=== PATIENT | female | born 1950 | race Caucasian/White ===

== ENCOUNTER 2017-01-11 05:39 | Day surgery (SDC) | payer OTHER ==
[~2017-01-11] VITALS: Ht 152.4 cm; Wt 69.9 kg
--- NOTE | ~2017-01-11 | O ---
[facility] Biju Hernandez [facility] [place] [address] OPERATIVE REPORT Name: TATE RUBY Room #: REG [facility].#: [id number] Admission: 01/11/17 Attend Phys: Tin Guy MD, Discharge: Date of : 50 Report #: [id number] THIS REPORT FOR: //name// CC: Tin Monroy DATE OF SERVICE: 01/11/2017 PREOPERATIVE DIAGNOSES: 1. Nonhealing stage 4 sacral decubitus wound. 2. 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 3. Protein-calorie malnutrition. 4. Generalized debility. POSTOPERATIVE DIAGNOSES: 1. Nonhealing stage 4 sacral decubitus wound. 2. 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 3. Protein-calorie malnutrition. 4. Generalized debility. PROCEDURES: 1. Excisional debridement of skin, subcutaneous tissue, muscle and bone of a chronically infected stage 4 sacral decubitus wound, ultimately measuring 11 x 11 cm in dimension (121 square cm). Preoperative wound measurements were 2 x 2.5 cm in dimension with significant undermining circumferentially. 2. Placement of an extracellular tissue matrix to the stage 4 sacral decubitus wound measuring 121 square cm. 3. Diverting loop transverse colostomy. SURGEON: Tin Guy M.D. SERVOMECHANISM DESIGNER: Ulises Arauz D.O. ANESTHESIA: General endotracheal anesthesia. ESTIMATED BLOOD LOSS: Minimal (less than 20 mL). COMPLICATIONS: None appreciated. SPECIMENS: All excised tissue from the sacral wound to pathology; however, bone excised was sent to microbiology for aerobic, anaerobic and fungal culture and sensitivity. INDICATIONS: The patient is a 66-year-old chronically debilitated female who has developed a recurrent stage 4 sacral decubitus wound that is chronically infected as it is near her anal orifice and she has chronic debility [address] [address] OPERATIVE REPORT Name: TORINANAMPerlaTATE Room #: REG [facility]#: [id number] Admission: 01/11/17 Attend Phys: Tin Guy MD, Discharge: Date of : 50 Report #: [id number] with stooling in her bed. The patient has undergone prior repair in the distant past, and as this is located near her anal orifice with significant undermining circumferentially, indication was for debridement today back to healthy tissue as well as placement of an extracellular tissue matrix to the wound to stimulate wound healing and performance of a diverting colostomy. DESCRIPTION OF PROCEDURE: After explaining the risks, benefits and alternatives of the procedure with the patient in detail with the patient in the preoperative holding area and obtaining consent, the patient was brought to the operating room supine on her hospital bed. After conducting a thorough timeout procedure verifying correct patient and procedure, the patient was given general endotracheal anesthesia. Once adequate anesthesia was attained, her SCDs were hooked up to a pneumatic compression device, and she was given a preoperative dose of antibiotics in line with the SCIP protocol. She was already on an inpatient regimen as delineated by Infectious Disease. The patient was now positioned on the operating room table in the prone position with all pressure points appropriately padded. The sacral wound was now prepped and draped in a standard surgical sterile fashion. Electrocautery was used to circumferentially debride all nonviable skin, subcutaneous tissue and muscle from the periphery of the wound carrying it down into the bed of the wound where a healthy vascularized tissue was encountered upon. All necrotic tissue and slough in the bed of the wound was excised. In the centralized portion of the wound, there was exposed sacral bone. This was debrided back with electrocautery and rongeurs back to healthy bleeding bone. The bone was sent off the field as specimen for culture and all remaining tissue was sent for pathologic diagnosis. I now utilized the [employer] ultrasonic debridement tool to remove all biofilm and remaining nonviable tissue throughout the bed of the wound. The wound ultimately measured 11 x 11 cm in dimension at the completion of the debridement. Once hemostasis was assured, the wound was irrigated. I then placed an extracellular tissue matrix to the wound measuring 121 square cm. This was sewn down at 1-cm increments around the periphery as well as numerous sutures having been placed throughout the innermost portion of the fenestrated extracellular tissue matrix, all using 3-0 Vicryl in a standard interrupted fashion. The wound was then covered with sterile lubricating jelly, Adaptic, Kerlix fluffs and ABDs. A Medipore tape was then placed to the wound. The patient was then repositioned in the supine position where her abdomen was prepped and draped in a standard surgical sterile fashion. 10 mL of 0.5% Marcaine with epinephrine were used to anesthetize the skin midway between the xiphoid and the umbilicus. A #10 bladed scalpel was used to create a 2.5-cm vertical incision at this location. Electrocautery was used to carry this down through the skin and subcutaneous tissues to ensure hemostasis until I arrived upon the anterior fascia. The fascia was scored longitudinally for the length of 2.5 cm as well, and once into the abdomen, the transverse colon was easily identified and was grasped with a Gridley and elevated into the bed of the wound. A window was made in the mesentery of the colon at this location, and a colostomy retention bar was placed through the window in the mesentery, which [facility] [address] [place] [address] OPERATIVE REPORT Name: TORINVASILIYTETOTATE Room #: REG [facility]..#: [id number] Admission: 01/11/17 Attend Phys: Tin Guy MD, Discharge: Date of : 50 Report #: [id number] was then anchored to the skin using 2-0 nylon in a standard fashion. The antimesenteric aspect of the colon was then opened with electrocautery to create a colotomy, and then the opening was enlarged longitudinally using a hemostat placed in the colotomy to ensure that no injury to the back wall of the colon was sustained. Once the colotomy was enlarged appropriately, 3-0 Vicryl was now used in 4 interrupted sutures at the superior and inferior aspects on either side of the retention bar to anchor full-thickness bites of the colon to the dermis. I then utilized an additional 3-0 Vicryl suture in a standard running fashion to anchor the mucocutaneous juncture on both the right and left lateral aspects of the loop colostomy. Digital finger intubation of both limbs of the colostomy showed them to be widely patent to a subfascial level. A sterile colostomy appliance was then applied completing the procedure. At the end of the procedure, all instrument, needle and sponge counts were correct. The patient tolerated the procedure without incident, was awakened in the operating room and transitioned to the recovery room in stable condition with no apparent complications. <ELECTRONICALLY SIGNED> By: Tin Guy MD, FACS 01/12/17 [id number] Tin Guy MD, FACS /nt
--- NOTE | ~2017-01-11 | S ---
[facility] [place] [address] SURGICAL PATH RPT PROCEDURE Name: ANUSHA RUBY Room #: DEP [facility]..#: [id number] Admission: 01/11/17 Date of : 50 Discharge: 01/11/17 Report #: [id number] Path Case #: [id number] PATHOLOGY REPORT COLLECTION DATE: 01/11/2017 RECEIVED DATE: 01/12/2017 SUBMITTING PHYS: Dr. Tin Guy OTHER PHYS: Dr. Kelly Monroy SPECIMEN(S) RECEIVED: A.Sacral wound * * * * * * * * * * * * FINAL DIAGNOSIS: Sacrum, debridement: - Skin and subcutaneous tissue with ulcer, necrosis, and focal granulation tissue formation. PATHOLOGIST: Johnathan Noel M.D. REPORT ELECTRONICALLY SIGNED BY: Johnathan Noel M.D. DATE/TIME: 01/15/2017 09:05 * * * * * * * * * * * * GROSS PATHOLOGY: The specimen is received in formalin, labeled "Anusha Ruby sacral wound". Received is a round segment of pink-caballero skin with attached underlying caballero-mack, indurated soft tissue admixed with pale yellow, fibroadipose tissue measuring 8.3 x 7.0 x 3.1 cm in greatest dimensions. The skin surface displays a wound measuring 1.8 x 1.0 cm, and is surrounded by white to pale purple epidermis. Shredding Machine Tender sections from the wound perimeter are submitted in cassette A1. (DAC; 01/12/2017) CLINICAL HISTORY: Sacral decubitus ulcer INITIAL CPT CODE(S): A; 90859 Professional services performed by [facility] at [facility] [address], [place] [address] Technical services performed by [facility] at [address] [place] [id number]. [facility] [address] [place] [address] SURGICAL PATH RPT PROCEDURE Name: ANUSHA RUBY Room #: DEP [facility] [place]#: [id number] Admission: 01/11/17 Date of : 50 Discharge: 01/11/17 Report #: [id number] Path Case #: [id number] [facility] [address] [address] PHONE: [phone] DIRECTOR: Suleiman Spear M.D. * * * END OF REPORT * * *
--- NOTE | ~2017-01-11 | EKG ---
[address] [address] ELECTROCARDIOGRAM REPORT Name: TATE RUBY Room #: 150-7 [facility].#: [id number] Admission: 01/11/17 Attend Phys: Tin Guy MD, Discharge: Date of : 50 Report #: [id number] THIS REPORT FOR: //name// [facility] Test Date: 2017-01-11 Test Time: 07:55:42 Pat Name: TATE RUBY Department: Room: 150 7 Gender: F Lead Caster Helper: REBECCA : 1950 Requested By: Tin Guy Order Number: [id number] MD: Angel Kinney Measurements Intervals [place] Rate: 89 P: 53 MS: 139 QRS: 24 QRSD: 88 T: 49 QT: 369 QTc: 449 Interpretive Statements Sinus rhythm Minimal ST elevation, anterior leads No previous ECG available for comparison Electronically Signed On 01-11-2017 8:51:33 CDT by Angel Kinney [email or web address] <ELECTRONICALLY SIGNED> By: Angel Kinney MD 01/11/17 0851 [id number] Angel Kinney MD /JIM
[~2017-01-11 05:39] MED LIST: ACCUNEB SO1.25 MG/1 INH; APAP650 PO; ARICEPT 5 MG TAB5 MG PO; CARISOPRODOL 3350 MG PO; CENTRUM SILVER1 EAC4 PO; CITRATE OF MAG296 M1 PO; CYMBALTA30 MG PO; DILAUDID 2 MG TA2 MG PO; DILAUDID1 MG/1 ML IV PUSH; FENTANYL CITRATE1 GM TOP; HEPARIN SO5000 UNIT1 SUBQ; LIPITOR10 MG PO; LOPRESSOR25 PO; MELATONIN1 MG PO; MEROPENEM-500 MG/50 IVPB; METFORMIN HCL500 MG PO; NAMENDA 10 MG T10 MG PO; NEXIUM40 MG PO; PRISTIQ50 MG PO; PROCEL1 EACH PO; PROTONIX40 M1 PO; REMERON15 MG PO; SINGULAIR 10 MG10 M1 PO; TRAZODONE HCL100 MG PO; VANC750 IVPB; ZYPREXA2.5 MG PO; ZYPREXA5 MG IM; ZYPREXA5 MG PO
[2017-01-11 08:13] LABS: ABSOLUTE NEUTROPHILS 3.2 thou/uL (1.4-8.2); BASOPHILS 0.9 % (0.0-2.0); EOSINOPHILS 3.2 % (0.0-3.0); HEMATOCRIT 32.1 % (37.0-47.0); HEMOGLOBIN 10.8 gm/dL (12.0-15.0); MCH 29.8 pg (26.0-34.0); MCHC 33.8 g/dL (28.0-37.0); MCV 88.4 fL (80.0-100.0); MONOCYTES 9.9 % (1.0-8.0); PLATELET COUNT 366 thou/uL (150-400); RBC 3.63 mil/uL (4.20-5.00); RDW 15.5 % (10.5-14.5); WBC 6.3 thou/uL (4.0-11.0)
[2017-01-11 08:18] LABS: MANUAL DIFF NO
[2017-01-11 09:03] VITALS: BP 140/83
[2017-01-11 10:14] LABS: CALCIUM 8.3 mg/dL (8.5-10.1); CREATININE 1.2 mg/dL (0.6-1.0); POTASSIUM 5.7 mmol/L (3.5-5.1)
[2017-01-11 15:38] VITALS: BP 140/83
== END 2017-01-11 16:00 | disposition home or self-care (01) ==
LOC: OR 05:39 → TBA 05:41 → OR 16:00
PROVIDERS: Surgery
DX: L89.154 Pressure ulcer of sacral region, stage 4 (principal); E46 Unspecified protein-calorie malnutrition; I10 Essential (primary) hypertension; E11.9 Type 2 diabetes mellitus without complications; J43.9 Emphysema, unspecified; D64.9 Anemia, unspecified; E78.5 Hyperlipidemia, unspecified; F31.9 Bipolar disorder, unspecified; F41.8 Other specified anxiety disorders; K21.9 Gastro-esophageal reflux disease without esophagitis; Z88.0 Allergy status to penicillin; Z88.6 Allergy status to analgesic agent; Z87.891 Personal history of nicotine dependence; Z79.899 Other long term (current) drug therapy; Z98.890 Other specified postprocedural states
CPT/HCPCS: 50010; 50101; 50249; 50386; 50403; 50555; 50558; 50962; 51412; 52265; 53307; 53353; 53354; 54022; 54109; 56462; 56524; 56525; 57092; 62110; 62900; 70005